=== PATIENT | male | born 1955 | race Caucasian/White ===

== ENCOUNTER 2024-11-26 19:39 | Inpatient (IN) | payer MEDICAID, MEDICARE ==
[~2024-11-26] VITALS: Ht 175.3 cm; Wt 73.5 kg
[2024-11-26] MEDS ORDERED: MAGN400O6 PO (20:08)
[2024-11-26] MEDS ORDERED: TEMA15CA PO (20:08)
[2024-11-26] MEDS ORDERED: SENN8.6T19 PO (20:08)
[2024-11-26] MEDS ORDERED: MAG-55 PO (20:08)
[2024-11-26] MEDS ORDERED: BISA10SU61 RC (20:08)
[2024-11-26] MEDS ORDERED: DOCU-141 PO (20:08)
[2024-11-26] MEDS ORDERED: ACET650T10 PO (20:08)
[2024-11-26] MEDS ORDERED: BENZ2TAB7 PO (20:08)
[2024-11-26] MEDS ORDERED: POLY17PO4 PO (20:08)
[2024-11-26] MEDS ORDERED: LORA-259 PO (20:08)
[2024-11-26] MEDS ORDERED: NA P230E RC (20:08)
[2024-11-26] MEDS ORDERED: OLAN10TA73 PO (20:08)
[2024-11-26 20:11] LABS: BASOPHILS % (AUTO) 0.4 % (0.0-2.0); EOSINOPHILS # (AUTO) 0.1 K/uL (0.0-0.7); EOSINOPHILS % (AUTO) 1.1 % (0.0-7.0); HEMATOCRIT 47.2 % (36.7-47.1); HEMOGLOBIN 15.9 g/dL (12.5-16.3); LYMPHOCYTES # (AUTO) 1.3 K/uL (0.8-4.8); LYMPHOCYTES % (AUTO) 13.1 % (20.5-51.5); MEAN CORPUSCULAR HGB CONC 34 g/dL (32.5-36.3); MEAN CORPUSCULAR VOLUME 94.6 fL (73.0-96.2); MONOCYTES # (AUTO) 0.5 K/uL (0.1-1.30); MONOCYTES % (AUTO) 5.6 % (0.0-11.0); NEUTROPHILS # (AUTO) 7.8 K/uL (1.8-8.9); NEUTROPHILS % (AUTO) 79.8 % (38.5-71.5); PLATELET COUNT (AUTO) 197 K/uL (152-348); RED BLOOD CELL COUNT(AUTO) 4.98 MIL/uL (4.06-5.63); RED CELL DISTRIBUTION WIDTH 13.5 % (12.1-16.2); WHITE BLOOD COUNT (AUTO) 9.8 K/uL (3.6-10.2)
[2024-11-26 20:16] LABS: DIFFERENTIAL COMMENT 1
[2024-11-26 20:21] LABS: *BILIRUBIN,URIN NEGATIVE (NEGATIVE); *BLOOD, URINE 1+ (NEGATIVE); *CLARITY,URINE CLEAR (CLEAR); *COLOR,URINE YELLOW (YELLOW); *KETONES,URINE TRACE (NEGATIVE); *PROTEIN,URINE 2+ (NEGATIVE); AMMONIA < 10 umol/L (11-32); CALCIUM 9.5 mg/dL (8.5-10.1); CARBON DIOXIDE 29 mmol/L (21-32); CHLORIDE 105 mmol/L (98-107); CREATININE 1.4 mg/dL (0.6-1.3); GLUCOSE 133 mg/dL (74-106); LEUKOCYTE ESTERASE ,URINE NEGATIVE (NEGATIVE); NITRITE, URINE NEGATIVE (NEGATIVE); PH,URINE 5.5 (5.0-8.0); SODIUM SERUM 143 mmol/L (136-145); UGLUCOSE NEGATIVE (NEGATIVE); UREA NITROGEN, BLOOD 36 mg/dL (7-18)
[2024-11-26 20:27] LABS: RBC,URINE 0-3 /HPF (0-3); WBC,URINE 0-3 /HPF (0-3)
[2024-11-26 20:33] LABS: *AMPHETAMINE, URINE NEGATIVE (NEGATIVE); *BARBITURATE, URINE NEGATIVE (NEGATIVE); *BENZODIAZEPINE, URINE NEGATIVE (NEGATIVE); *CANNABINOID, URINE NEGATIVE (NEGATIVE); *COCCAINE, URINE NEGATIVE (NEGATIVE); *OPIATE, URINE NEGATIVE (NEGATIVE); *PHENCYCLIDINE SCREEN,URINE NEGATIVE (NEGATIVE); FENTANYL, URINE NEGATIVE (NEGATIVE)
[2024-11-26 20:34] LABS: ACETAMINOPHEN < 2.0 ug/mL (10-30); ALANINE AMINOTRANSFERASE 29 U/L (16-63); ALBUMIN 4.4 g/dL (3.4-5.0); ALKALINE PHOSPHATASE 129 U/L (50-136); ASPARTATE AMINOTRANSFERASE 26 U/L (15-37); NT-PRO BNP 62 pg/mL (0-125); TOTAL PROTEIN, SERUM 8.4 g/dL (6.4-8.2)
[2024-11-26 20:48] LABS: ETHANOL < 3 MG/DL (0-10)
[2024-11-26 20:48] LABS: BILIRUBIN,TOTAL 0.7 mg/dL (0.2-1.0)
[2024-11-27 01:00] VITALS: BP 169/96; TEMP 98.5; O2SAT 96
[2024-11-27] MEDS ORDERED: LORAZEPAM 1 MG TABLET PO PRN (01:15)
[2024-11-27] MEDS ORDERED: TEMAZEPAM 7.5 MG CAPSULE PO PRN ×2 (01:15)
[2024-11-27] MEDS ORDERED: MAG HYDROX/AL HYDROX/SIMETH 30 ML LIQUID UDC PO PRN (01:15)
[2024-11-27] MEDS ORDERED: MAGNESIUM HYDROXIDE 30 ML LIQUID UDC PO PRN (01:15)
[2024-11-27] MEDS ORDERED: ACETAMINOPHEN 325 MG TABLET PO PRN ×2 (01:15→10:30)
[2024-11-27] MEDS: BLOOD SUGAR DIAGNOSTIC 1 EACH STRIP VI ONE (01:15)
[2024-11-27] MEDS ORDERED: MIRALAX 17 GM POWD.PACK PO SCH (10:30)
[2024-11-27] MEDS ORDERED: TEMAZEPAM 15 MG CAPSULE PO PRN (10:30)
[2024-11-27] MEDS ORDERED: MAGNESIUM HYDROXIDE 30 ML LIQUID UDC PO SCH (10:30)
[2024-11-27] MEDS ORDERED: BISACODYL 10 MG SUPP.RECT RC SCH (10:30)
[2024-11-27] MEDS ORDERED: BISACODYL 10 MG SUPP.RECT RC PRN (16:42)
[2024-11-27] MEDS ORDERED: MIRALAX 17 GM POWD.PACK PO PRN (16:43)
[2024-11-27] MEDS: SENNOSIDES 1 TABLET PO SCH (21:15)
[2024-11-28] MEDS ORDERED: TEMAZEPAM 15 MG CAPSULE PO PRN (06:45)
[2024-11-28] MEDS: OLANZAPINE ZYDIS 5 MG TAB.RAPDIS PO SCH (09:00)
[2024-11-28] MEDS: DOCUSATE SODIUM 100 MG CAPSULE PO SCH (09:00)
[2024-12-02] MEDS: LORAZEPAM 2 MG/1 ML VIAL IM ONE (14:01)
[2024-12-02] MEDS: HALOPERIDOL LACTATE 5 MG/1 ML VIAL IM ONE (14:02)
[2024-12-02] MEDS: diphenhydrAMINE 50 MG/1 ML VIAL IM ONE (14:02)
[2024-12-03] MEDS: HALOPERIDOL LACTATE 5 MG/1 ML VIAL IM ONE (13:33)
[2024-12-03] MEDS: LORAZEPAM 2 MG/1 ML VIAL IM ONE (13:33)
[2024-12-03] MEDS: diphenhydrAMINE 50 MG/1 ML VIAL IM ONE (13:33)
[2024-12-04] MEDS: LORAZEPAM 1 MG TABLET PO PRN (07:47)
[2024-12-05 20:00] VITALS: TEMP 98.5
[2024-12-07] MEDS ORDERED: OLANZAPINE 10 MG VIAL IM PRN (14:00)
[2024-12-10] MEDS: diphenhydrAMINE 50 MG/1 ML VIAL IM STA (10:31)
[2024-12-10] MEDS: HALOPERIDOL LACTATE 5 MG/1 ML VIAL IM STA (10:31)
[2024-12-10] MEDS: LORAZEPAM 2 MG/1 ML VIAL IM STA (10:31)
[2024-12-10] MEDS: QUETIAPINE FUMARATE 25 MG TABLET PO SCH (20:52)
[2024-12-11] MEDS ORDERED: QUETIAPINE FUMARATE 25 MG TABLET PO SCH (09:00)
[2024-12-11] MEDS ORDERED: OLANZAPINE 10 MG VIAL IM PRN (10:45)
[2024-12-13 18:42] VITALS: BP 157/104
[2024-12-13] MEDS: LISINOPRIL 10 MG TABLET PO ONE (18:42)
== END 2024-12-13 20:43 | DRG 750 ==
LOC: ER 19:48 → GPS 22:45
PROVIDERS: ADMIT Psychiatry & Neurology Psychiatry
DX: F20.0 Paranoid schizophrenia (principal); U07.1 COVID-19; N17.9 Acute kidney failure, unspecified; R45.851 Suicidal ideations; N18.9 Chronic kidney disease, unspecified; G47.00 Insomnia, unspecified; I12.9 Hypertensive chronic kidney disease with stage 1 through stage 4 chronic kidney disease, or unspecified chronic kidney disease; Z91.199 Patient's noncompliance with other medical treatment and regimen due to unspecified reason; Z79.899 Other long term (current) drug therapy
CPT/HCPCS: 36415; 71045; 84484; 85025; 93005; A4606; A4663; G0480; J1200; J1630; J2060

== ENCOUNTER 2025-04-18 11:18 | Inpatient (IN) | payer MEDICARE, OTHER ==
[~2025-04-18] VITALS: Ht 175.3 cm; Wt 73.5 kg
[~2025-04-18 11:18] MED LIST: ACET650T10 PO; BISA10SU61 RC; DOCU-141 PO; MAG-55 PO; MAGN400O6 PO; NA P230E RC; POLY17PO4 PO; SENN8.6T19 PO; TEMA15CA PO
[2025-04-18] MEDS ORDERED: PSYL0.4C2 PO (11:52)
[2025-04-18] MEDS ORDERED: MAGN400O6 PO (11:52)
[2025-04-18] MEDS ORDERED: NA P133E RC (11:52)
[2025-04-18] MEDS ORDERED: DOCU250C14 PO (11:52)
[2025-04-18] MEDS ORDERED: MAG30ORA PO (11:52)
[2025-04-18] MEDS ORDERED: ACET-2154 PO (11:52)
[2025-04-18] MEDS ORDERED: BISA10SU95 RC (11:52)
[2025-04-18] MEDS ORDERED: BENZ2TAB7 PO (11:52)
[2025-04-18] MEDS ORDERED: MULT-594 PO (11:52)
[2025-04-18] MEDS ORDERED: SENN-301 PO (11:52)
[2025-04-18] MEDS ORDERED: OLAN10TA3 PO (11:52)
[2025-04-18] MEDS ORDERED: LORA-259 PO (11:52)
[2025-04-18] MEDS ORDERED: OMEP20TA5 PO (11:52)
[2025-04-18] MEDS ORDERED: TEMA15CA PO (11:52)
[2025-04-18] MEDS ORDERED: HYDR50TA62 PO (11:52)
[2025-04-18] MEDS ORDERED: LISI10TA29 PO (11:52)
[2025-04-18 13:16] LABS: PLATELET COUNT (AUTO) 193 K/uL (152-348); RED BLOOD CELL COUNT(AUTO) 4.70 MIL/uL (4.06-5.63); RED CELL DISTRIBUTION WIDTH 13.7 % (12.1-16.2); WHITE BLOOD COUNT (AUTO) 6.3 K/uL (3.6-10.2)
[2025-04-18 13:18] LABS: *BILIRUBIN,URIN NEGATIVE (NEGATIVE); *BLOOD, URINE NEGATIVE (NEGATIVE); *CLARITY,URINE CLEAR (CLEAR); *COLOR,URINE YELLOW (YELLOW); *KETONES,URINE NEGATIVE (NEGATIVE); *PROTEIN,URINE NEGATIVE (NEGATIVE); *UROBILINOGEN,URINE 0.2 E.U./dl (NORMAL); LEUKOCYTE ESTERASE ,URINE NEGATIVE (NEGATIVE); NITRITE, URINE NEGATIVE (NEGATIVE); UGLUCOSE NEGATIVE (NEGATIVE)
[2025-04-18 13:25] LABS: *AMPHETAMINE, URINE NEGATIVE (NEGATIVE); *BARBITURATE, URINE NEGATIVE (NEGATIVE); *BENZODIAZEPINE, URINE NEGATIVE (NEGATIVE); *CANNABINOID, URINE NEGATIVE (NEGATIVE); *COCCAINE, URINE NEGATIVE (NEGATIVE); *OPIATE, URINE NEGATIVE (NEGATIVE); *PHENCYCLIDINE SCREEN,URINE NEGATIVE (NEGATIVE)
[2025-04-18 13:26] LABS: ASPARTATE AMINOTRANSFERASE 36 U/L (15-37); CREATININE 0.9 mg/dL (0.6-1.3); SODIUM SERUM 141 mmol/L (136-145); TOTAL PROTEIN, SERUM 8.3 g/dL (6.4-8.2); UREA NITROGEN, BLOOD 25 mg/dL (7-18)
[2025-04-18 13:58] LABS: FENTANYL, URINE NEGATIVE (NEGATIVE)
[2025-04-18 14:08] VITALS: BP 147/97
[2025-04-18] MEDS ORDERED: PSYL575P22 PO (14:56)
[2025-04-18 15:22] VITALS: BP 154/88; TEMP 98.2; O2SAT 98
[2025-04-18] MEDS ORDERED: MAGNESIUM HYDROXIDE 30 ML LIQUID UDC PO PRN ×2 (16:45)
[2025-04-18] MEDS ORDERED: MAG HYDROX/AL HYDROX/SIMETH 30 ML LIQUID UDC PO PRN (16:45)
[2025-04-18] MEDS ORDERED: ACETAMINOPHEN 325 MG TABLET PO PRN ×2 (16:45)
[2025-04-18] MEDS ORDERED: ACETAMINOPHEN 325 MG TABLET-SA PATIENTS-PAIN ONLY PO PRN (16:45)
[2025-04-18] MEDS ORDERED: BISACODYL 10 MG SUPP.RECT RC PRN (16:45)
[2025-04-18] MEDS ORDERED: FLEET ENEMA 133 ML BOTTLE RC PRN (16:45)
[2025-04-18] MEDS ORDERED: ZOLPIDEM 5 MG TABLET PO PRN (16:45)
[2025-04-18] MEDS: PSYLLIUM SEED PACKET PO SCH (17:00)
[2025-04-18] MEDS ORDERED: [UNRECOGNIZED DRUG - OTHER] PO SCH (17:00)
[2025-04-18] MEDS ORDERED: PSYLLIUM HUSK 3.4 GM PO SCH (17:00)
[2025-04-18 20:10] VITALS: BP 146/82; TEMP 98.2; O2SAT 98
[2025-04-18] MEDS: DOCUSATE SODIUM 250 MG CAPSULE PO SCH (21:00)
[2025-04-18] MEDS: SENNOSIDES 1 TABLET PO SCH (21:00)
[2025-04-19] MEDS: PANTOPRAZOLE SODIUM 40 MG TABLET.DR PO SCH (07:00)
[2025-04-19] MEDS: MULTIVITAMINS,THERAPEUTIC TABLET PO SCH (08:55)
[2025-04-19] MEDS ORDERED: Medication Not On Formulary EA (Multivitamins (Multivitamin) 1 EACH) PO SCH (09:00)
[2025-04-19] MEDS: LISINOPRIL 10 MG TABLET PO SCH (09:00)
[2025-04-19] MEDS ORDERED: risperiDONE 1 MG/ML UDC PO SCH (12:45)
[2025-04-20] MEDS ORDERED: OLANZAPINE ZYDIS 5 MG TAB.RAPDIS PO SCH (17:00)
[2025-04-20] MEDS ORDERED: OLANZAPINE ZYDIS 5 MG TAB.RAPDIS PO PRN (17:00)
[2025-04-22] MEDS: OLANZAPINE ZYDIS 5 MG TAB.RAPDIS PO SCH (16:44)
[2025-04-23 17:17] VITALS: BP 122/75; TEMP 99.1; O2SAT 95
[2025-04-23 19:58] VITALS: BP 118/72; TEMP 98.4; O2SAT 95
[2025-04-24] MEDS: LISINOPRIL 5 MG TABLET PO SCH (09:00)
[2025-04-26] MEDS: MAG HYDROX/AL HYDROX/SIMETH 30 ML LIQUID UDC PO PRN (14:18)
[2025-04-26] MEDS: OLANZAPINE ZYDIS 5 MG TAB.RAPDIS PO SCH (20:12)
[2025-04-28] MEDS ORDERED: OLANZAPINE 10 MG VIAL IM PRN (19:45)
[2025-05-02] MEDS: LORAZEPAM 1 MG TABLET PO PRN (20:30)
[2025-05-05 16:29] VITALS: BP 147/93; TEMP 98; O2SAT 98
== END 2025-05-05 16:45 | DRG 885 ==
LOC: ER 11:18 → GPS 14:34
PROVIDERS: ADMIT Psychiatry & Neurology Psychiatry; ATTEND Nurse Practitioner Family
DX: F20.0 Paranoid schizophrenia (principal); R45.851 Suicidal ideations; F39 Unspecified mood [affective] disorder; K21.9 Gastro-esophageal reflux disease without esophagitis; I10 Essential (primary) hypertension; R79.89 Other specified abnormal findings of blood chemistry; M62.59 Muscle wasting and atrophy, not elsewhere classified, multiple sites; Z91.148 Patient's other noncompliance with medication regimen for other reason
CPT/HCPCS: 36415; 85025

== ENCOUNTER 2025-05-05 19:51 | Emergency (ER) | payer MEDICARE, OTHER ==
[~2025-05-05] VITALS: Ht 172.7 cm; Wt 72.6 kg
[~2025-05-05 19:51] MED LIST changes: +ACET-2154 PO; -ACET650T10 PO; +BENZ2TAB7 PO; -BISA10SU61 RC; +BISA10SU95 RC; -DOCU-141 PO; +DOCU250C14 PO; +HYDR50TA62 PO; +LISI10TA29 PO; -MAG-55 PO; +MAG30ORA PO; +MULT-594 PO; +NA P133E RC; -NA P230E RC; +OMEP20TA5 PO; -POLY17PO4 PO; +PSYL575P22 PO; -TEMA15CA PO
[2025-05-06] MEDS ORDERED: LISINOPRIL 10 MG TABLET ONE (10:13)
[2025-05-06 10:15] VITALS: BP 136/86
[2025-05-06] MEDS: LISINOPRIL 10 MG TABLET PO ONE (10:17)
[2025-05-06 11:45] VITALS: BP 136/86; TEMP 98; O2SAT 98
== END 2025-05-06 11:20 | disposition home or self-care (01) ==
LOC: ER 20:13
DX: R03.0 Elevated blood-pressure reading, without diagnosis of hypertension (principal); I51.9 Heart disease, unspecified; K21.9 Gastro-esophageal reflux disease without esophagitis; Z79.899 Other long term (current) drug therapy
CPT/HCPCS: A4606; A4663

== ENCOUNTER 2025-05-28 20:46 | Inpatient (IN) | payer MEDICAID, MEDICARE ==
[~2025-05-28] VITALS: Ht 172.7 cm; Wt 70.8 kg
[2025-05-28 20:46] VITALS: BP 132/87
[2025-05-28 23:39] VITALS: BP 147/95; TEMP 97.7
[2025-05-28] MEDS ORDERED: MAG HYDROX/AL HYDROX/SIMETH 30 ML LIQUID UDC PO PRN (23:45)
[2025-05-28] MEDS: BLOOD SUGAR DIAGNOSTIC 1 EACH STRIP VI ONE (23:45)
[2025-05-28] MEDS ORDERED: TEMAZEPAM 7.5 MG CAPSULE PO PRN ×2 (23:45)
[2025-05-28] MEDS ORDERED: MAGNESIUM HYDROXIDE 30 ML LIQUID UDC PO PRN (23:45)
[2025-05-28] MEDS ORDERED: ACETAMINOPHEN 325 MG TABLET PO PRN (23:45)
[2025-05-29] MEDS ORDERED: TEMAZEPAM 15 MG CAPSULE PO PRN (05:15)
[2025-05-29] MEDS: LISINOPRIL 10 MG TABLET PO SCH (09:09)
[2025-05-29] MEDS: LORAZEPAM 1 MG TABLET PO PRN (09:10)
[2025-05-29] MEDS: OLANZAPINE ZYDIS 5 MG TAB.RAPDIS PO SCH (17:00)
[2025-05-29] MEDS: BENZTROPINE MESYLATE 0.5 MG TABLET PO SCH (17:33)
[2025-05-30 08:26] VITALS: BP 121/79; TEMP 98.2; O2SAT 96
[2025-05-30] MEDS: LORAZEPAM 1 MG TABLET PO PRN (08:31)
[2025-05-30 20:00] VITALS: BP 121/77; TEMP 98; O2SAT 99
[2025-05-31 15:23] VITALS: BP 129/88; TEMP 98; O2SAT 99
[2025-05-31 20:00] VITALS: BP 137/80; TEMP 97.7; O2SAT 99
[2025-06-01 08:27] VITALS: BP 117/84; TEMP 98; O2SAT 99
[2025-06-01 16:48] VITALS: BP 111/77; TEMP 98; O2SAT 99
[2025-06-01 20:21] VITALS: BP 126/86; TEMP 98.5; O2SAT 99
[2025-06-02] MEDS: SERTRALINE HCL 50 MG TABLET PO SCH (08:26)
[2025-06-02 08:38] VITALS: BP 145/95; TEMP 98; O2SAT 99
[2025-06-02 16:22] VITALS: BP 148/73; TEMP 98; O2SAT 99
[2025-06-02 19:58] VITALS: BP 140/88; TEMP 98.1; O2SAT 98
[2025-06-03 08:32] VITALS: BP 124/85; TEMP 98; O2SAT 99
[2025-06-03 16:34] VITALS: BP 114/72; TEMP 98; O2SAT 99
[2025-06-03 20:01] VITALS: BP 121/85; TEMP 98.6; O2SAT 95
[2025-06-04 07:49] VITALS: BP 118/71; TEMP 98.5; O2SAT 94
[2025-06-04 08:16] VITALS: BP 118/71
== END 2025-06-04 14:15 | disposition still patient (30) | DRG 750 ==
LOC: ER 20:50 → OBSER 22:00 → GPS 23:01
PROVIDERS: ADMIT Psychiatry & Neurology Psychiatry; ATTEND Internal Medicine
DX: F20.9 Schizophrenia, unspecified (principal); Z91.148 Patient's other noncompliance with medication regimen for other reason; R45.851 Suicidal ideations; I10 Essential (primary) hypertension; F32.A Depression, unspecified; Z59.00 Homelessness unspecified; R26.9 Unspecified abnormalities of gait and mobility; M62.50 Muscle wasting and atrophy, not elsewhere classified, unspecified site; Z79.899 Other long term (current) drug therapy; K21.9 Gastro-esophageal reflux disease without esophagitis
CPT/HCPCS: A4606; A4663